=== PATIENT | male | born 1995 | race Two or more races ===

== ENCOUNTER → 2024-04-19 12:59 | Outpatient (BNVA) | payer OTHER, SELFPAY | PROVIDERS: Visit Provider Physician Assistant Medical | DX: S41.111A Laceration without foreign body of right upper arm, initial encounter (principal); W22.8XXA Striking against or struck by other objects, initial encounter; Z23 Encounter for immunization | CPT/HCPCS: 12001; 90715; 99204 ==

== ENCOUNTER → 2024-04-21 11:04 | Outpatient (BNVA) | payer OTHER, SELFPAY | PROVIDERS: Visit Provider Physician Assistant Medical | DX: S41.111A Laceration without foreign body of right upper arm, initial encounter (principal); S46.211A Strain of muscle, fascia and tendon of other parts of biceps, right arm, initial encounter; W22.8XXA Striking against or struck by other objects, initial encounter | CPT/HCPCS: 99213 ==